=== PATIENT | female | born 1955 | race Caucasian/White ===

== ENCOUNTER 2017-09-07 21:43 | Inpatient (IN) | payer BC, OTHER ==
[~2017-09-07] VITALS: Ht 167.6 cm; Wt 102.0 kg
[2017-09-08] MEDS ORDERED: ONDANSETRON HCL 4 MG/2 ML VIAL IV ONE (01:15)
[2017-09-08] MEDS ORDERED: HYDROmorphone HCL 2 MG/ML VL IV ONE (01:15)
[2017-09-08 01:58] LABS: Basophils # (auto) 0 uL; Basophils % (auto) 0.3 % (0.0-2.0); Eosinophils # (auto) 0.1 uL; Eosinophils % (auto) 0.7 % (0.0-7.0); Hematocrit 38.4 % (36.0-46.0); Hemoglobin 12.8 g/dL (12.2-16.2); Lymphocytes # (auto) 1.5 uL; Lymphocytes % (auto) 16.9 % (10.0-50.0); Mean Corpuscular Hemoglobin 30.3 pg (28.0-32.0); Mean Corpuscular Hgb Conc. 33.4 g/dL (32.0-36.0); Mean Corpuscular Volume 90.9 fL (80.0-100.0); Monocytes # (auto) 0.6 uL; Monocytes % (auto) 7.3 % (0.0-12.0); Neutrophils # (auto) 6.5 uL; Neutrophils % (auto) 74.8 % (37.0-80.0); Platelet Count (auto) 228 10^3/uL (140-450); Red Blood Cells 4.22 10^6/uL (4.0-5.20); Red Cell Distribution Width 12.9 % (11.8-14.3); White Blood Cell 8.7 10^3/uL (4.4-10.8)
[2017-09-08 02:10] LABS: INR 0.94 (0.9-1.15); Partial Thromboplastin Time 26.3 sec (22.64-33.71); Prothrombin Time 10.2 sec (9.37-12.3)
[2017-09-08 02:30] LABS: BUN/Creatinine Ratio 36.9; Calcium 9.2 mg/dL (8.5-10.1); Potassium 4.1 mmol/L (3.5-5.1)
[2017-09-08] MEDS ORDERED: ACETAMINOPHEN 500 MG TAB PO ONE ×2 (06:36→06:45)
[2017-09-08] MEDS ORDERED: NITROGLYCERIN 0.4 MG SL TAB SL PRN (10:30)
[2017-09-08] MEDS ORDERED: LABETALOL HCL 5 MG/ML 4ML SYRINGE IV PRN (10:30)
[2017-09-08] MEDS ORDERED: TEMAZEPAM 15 MG CAP PO PRN (10:30)
[2017-09-08] MEDS ORDERED: LORazepam 0.5 MG TAB PO PRN (10:30)
[2017-09-08] MEDS ORDERED: LACTULOSE 20Gm/30ML SOLN PO PRN (10:30)
[2017-09-08] MEDS ORDERED: MORPHINE SULFATE 10 MG/ML INJ 1ML SDV IV PRN ×2 (10:30)
[2017-09-08 10:36] LABS: Urine Bacteria None Seen /hpf (None Seen); Urine WBC None Seen /hpf (0 - 5)
[2017-09-08] MEDS: SODIUM CHLORIDE 0.9% 1,000 ML IV SCH ×2 (10:46→20:23)
[2017-09-08 10:53] LABS: Urine Specific Gravity 1.026 (1.001-1.035)
[2017-09-08 10:54] LABS: Urine Blood Normal /uL (Negative)
[2017-09-08] MEDS ORDERED: IBUPROFEN 600 MG TAB PO ONE (11:00)
[2017-09-08 14:05] VITALS: BP 128/70
[2017-09-08] MEDS ORDERED: POTA10TA51 PO (18:08)
[2017-09-08] MEDS ORDERED: CHOL20007 PO (18:08)
[2017-09-08] MEDS ORDERED: CITA-77 PO (18:08)
[2017-09-08] MEDS ORDERED: ZOLM5TAB4 PO (18:08)
[2017-09-08] MEDS ORDERED: LOVA40TA72 PO (18:08)
[2017-09-08] MEDS ORDERED: OMEP20CA74 PO (18:08)
[2017-09-08] MEDS ORDERED: FURO20TA3 PO (18:08)
[2017-09-08] MEDS ORDERED: LEVO50TA7 PO (18:08)
[2017-09-08] MEDS ORDERED: CEPH500C PO (18:08)
[2017-09-08] MEDS: ACETAMINOPHEN 500 MG TAB PO PRN (21:03)
[2017-09-08 22:00] VITALS: BP 104/46
[2017-09-09 05:05] VITALS: BP 125/61
[2017-09-09] MEDS: SODIUM CHLORIDE 0.9% 1,000 ML IV SCH (05:32)
[2017-09-09] MEDS: PROMETHAZINE HCL 25 MG/ML 1ML IV PRN ×2 (05:33→16:17)
[2017-09-09] MEDS: ACETAMINOPHEN 500 MG TAB PO PRN (05:33)
[2017-09-09 08:00] VITALS: BP 151/72
[2017-09-09 12:00] VITALS: BP 155/85
[2017-09-09] MEDS ORDERED: LABETALOL HCL 5 MG/ML ML 20ML VIAL IV PRN (13:45)
[2017-09-09] MEDS ORDERED: FAMOTIDINE 20 MG TAB PO ONE (15:00)
[2017-09-09] MEDS ORDERED: LEVOTHYROXINE SODIUM 50 MCG TAB PO ONE (15:00)
[2017-09-09] MEDS: MORPHINE SULFATE 10 MG/ML INJ 1ML SDV IV PRN ×2 (16:16→21:14)
[2017-09-09 17:20] VITALS: BP 135/73
[2017-09-09] MEDS ORDERED: traMADol HCL 50 MG TAB PO PRN (19:45)
[2017-09-09 20:00] VITALS: BP 132/63
[2017-09-09 22:00] VITALS: BP 132/62
[2017-09-09] MEDS ORDERED: ATORVASTATIN 20 MG TAB PO SCH (22:00)
[2017-09-10] MEDS: MORPHINE SULFATE 10 MG/ML INJ 1ML SDV IV PRN ×2 (03:30→10:30)
[2017-09-10 05:10] VITALS: BP_SYST 145; BP_SYST 150; BP_DIAS 67; BP_DIAS 69
[2017-09-10 06:24] LABS: Cholesterol 161 mg/dL (< 200); HDL Cholesterol 44 mg/dL (40-59); LDL Cholesterol 101 mg/dL (< 100); Triglycerides 133 mg/dL (< 150)
[2017-09-10] MEDS ORDERED: LEVOTHYROXINE SODIUM 50 MCG TAB PO SCH (07:00)
[2017-09-10 08:00] VITALS: BP 154/77
[2017-09-10 09:21] VITALS: BP 154/77
[2017-09-10] MEDS ORDERED: FAMOTIDINE 20 MG TAB PO SCH (10:00)
[2017-09-10 12:30] VITALS: BP 126/65
[2017-09-10] MEDS ORDERED: DOCU-94 PO (12:31)
[2017-09-10] MEDS ORDERED: HYDR-4683 PO (12:32)
[2017-09-10] MEDS ORDERED: LACT10SO3 PO (12:33)
[2017-09-10] MEDS ORDERED: SODIUM CHLORIDE 0.9% 1,000 ML IV SCH (15:00)
[2017-09-10 16:41] VITALS: BP 114/72
[2017-09-10 17:50] VITALS: BP 114/72
== END 2017-09-10 20:26 | disposition home health service (06) | DRG 536 ==
LOC: EDBD 21:43 → ER 21:51 → TELE 21:52 → TELE-WESTW 09-08 14:02
PROVIDERS: ADMIT Internal Medicine; ATTEND Internal Medicine
DX: S32.512A Fracture of superior rim of left pubis, initial encounter for closed fracture (principal); I11.9 Hypertensive heart disease without heart failure; E66.01 Morbid (severe) obesity due to excess calories; E03.9 Hypothyroidism, unspecified; E78.5 Hyperlipidemia, unspecified; J45.909 Unspecified asthma, uncomplicated; K21.9 Gastro-esophageal reflux disease without esophagitis; M85.80 Other specified disorders of bone density and structure, unspecified site; T40.605A Adverse effect of unspecified narcotics, initial encounter; W01.0XXA Fall on same level from slipping, tripping and stumbling without subsequent striking against object, initial encounter; Y92.009 Unspecified place in unspecified non-institutional (private) residence as the place of occurrence of the external cause; Z80.0 Family history of malignant neoplasm of digestive organs; Z82.0 Family history of epilepsy and other diseases of the nervous system; Y93.K1 Activity, walking an animal; Y99.8 Other external cause status; Z83.3 Family history of diabetes mellitus; Z90.89 Acquired absence of other organs; Z98.51 Tubal ligation status; Z81.8 Family history of other mental and behavioral disorders; Z68.36 Body mass index [BMI] 36.0-36.9, adult; K59.03 Drug induced constipation
CPT/HCPCS: 36415; 51702; 71010; 72192; 73502; 80048; 80061; 81001; 84443; 85025; 85610; 85730; 93005; 96374; 96375; J2405